=== PATIENT | female | born 1955 | race Caucasian/White ===

== ENCOUNTER 2018-03-09 17:28 | Emergency (ER) | payer BC ==
[~2018-03-09] VITALS: Ht 157.5 cm; Wt 68.0 kg
== END 2018-03-09 22:03 | disposition home or self-care (01) ==
LOC: ER 17:28
DX: N39.0 Urinary tract infection, site not specified (principal); B96.29 Other Escherichia coli [E. coli] as the cause of diseases classified elsewhere

== ENCOUNTER 2018-03-12 08:05 | Emergency (ER) | payer BC ==
[~2018-03-12] VITALS: Ht 157.5 cm; Wt 68.0 kg
[2018-03-12] MEDS ORDERED: PHOSPHASAL TAB1 EACH (08:18)
[2018-03-12] MEDS ORDERED: CEFDINIR300 MG PO (11:35)
[2018-03-12] MEDS ORDERED: INTESTINEX680 M1 PO (11:35)
== END 2018-03-12 11:47 | disposition home or self-care (01) ==
LOC: ER 08:05
DX: N39.0 Urinary tract infection, site not specified (principal); R50.9 Fever, unspecified; L27.1 Localized skin eruption due to drugs and medicaments taken internally; T36.8X5A Adverse effect of other systemic antibiotics, initial encounter; Y92.89 Other specified places as the place of occurrence of the external cause